=== PATIENT | female | born 1945 | race Caucasian/White ===

== ENCOUNTER 2019-07-17 13:14 | Day surgery (SDC) | payer MEDICARE, BC ==
[~2019-07-17] VITALS: Ht 149.9 cm; Wt 60.0 kg
[~2019-07-17 13:14] MED LIST: ALEN70; EYE HEALTH ADU1 EACH; HYDCHL25; Pravachol40 MG; QVAR REDIHALE10.6 G1
[2019-07-17] MEDS ORDERED: THERA1 EACH (13:48)
== END 2019-07-17 16:00 | disposition home or self-care (01) ==
LOC: ORSCSDS 13:14
PROVIDERS: Student in an Organized Health Care Education/Training Program
PROC: 0DBK8ZX Excision of Ascending Colon, Via Natural or Artificial Opening Endoscopic, Diagnostic (ICD-10-PCS; principal; 2019-07-17 14:30)
PROC: 0DBH8ZX Excision of Cecum, Via Natural or Artificial Opening Endoscopic, Diagnostic (ICD-10-PCS; principal; 2019-07-17 14:30)
DX: Z12.11 Encounter for screening for malignant neoplasm of colon (principal); Z86.010 Personal history of colon polyps; D12.0 Benign neoplasm of cecum; D12.2 Benign neoplasm of ascending colon; K64.4 Residual hemorrhoidal skin tags; I10 Essential (primary) hypertension; E78.5 Hyperlipidemia, unspecified; Z79.899 Other long term (current) drug therapy; G47.33 Obstructive sleep apnea (adult) (pediatric)
CPT/HCPCS: 88305; J2704; J7120

== ENCOUNTER 2023-01-11 08:40 | Day surgery (SDC) | payer MEDICARE, BC ==
[~2023-01-11] VITALS: Ht 149.9 cm; Wt 58.8 kg
[~2023-01-11 08:40] MED LIST changes: +THERA1 EACH
[2023-01-11 10:33] VITALS: BP 125/70
--- NOTE | 2023-01-11 10:35 | NUR ---
01/11/23 1035 Kia Lisa IV, DC'D, CATH INTACT. PRESSURE DRESSING APPLIED, PT TOLERATED WELL
== END 2023-01-11 10:35 | disposition home or self-care (01) ==
LOC: ORSCSDS 08:40
PROVIDERS: Student in an Organized Health Care Education/Training Program
PROC: 0DBK8ZX Excision of Ascending Colon, Via Natural or Artificial Opening Endoscopic, Diagnostic (ICD-10-PCS; principal; 2023-01-11 10:00)
DX: Z12.11 Encounter for screening for malignant neoplasm of colon (principal); Z86.010 Personal history of colon polyps; D12.2 Benign neoplasm of ascending colon; K63.89 Other specified diseases of intestine; I10 Essential (primary) hypertension; E78.5 Hyperlipidemia, unspecified; G47.33 Obstructive sleep apnea (adult) (pediatric); Z79.899 Other long term (current) drug therapy
CPT/HCPCS: 88305; J2704; J7120

== ENCOUNTER → 2025-07-07 | Outpatient (CLI) | payer MEDICARE, BC | END | disposition home or self-care (01) | LOC: LAB SHORT 10:45 → LAB 10:45 | DX: N39.0 Urinary tract infection, site not specified (principal) | CPT/HCPCS: 87077; 87086; 87186 ==